=== PATIENT | male | born 1955 | race Caucasian/White ===

== ENCOUNTER 2022-12-18 16:40 | Inpatient (IN) | payer MEDICARE, OTHER ==
[~2022-12-18] VITALS: Ht 167.6 cm; Wt 66.7 kg
[2022-12-18] MEDS: HALOPERIDOL LACTATE 5 MG/ML INJ VIAL IM ONE ×2 (18:00→18:40)
[2022-12-18 18:42] LABS: Basophils # (auto) 0 10 ^3/uL (0-0.2); Basophils % (auto) 0.1 % (0.0-2.0); Eosinophils # (auto) 0.1 10 ^3/uL (0-0.8); Hematocrit 40.7 % (41.0-53.0); Hemoglobin 13.7 g/dL (13.5-17.5); Lymphocytes % (auto) 11.8 % (10.0-50.0); Mean Corpuscular Hemoglobin 30.4 pg (28.0-32.0); Mean Corpuscular Hgb Conc. 33.7 g/dL (32.0-36.0); Mean Corpuscular Volume 90.2 fL (80.0-100.0); Monocytes # (auto) 0.3 10 ^3/uL (0-1.3); Monocytes % (auto) 3.6 % (0.0-12.0); Neutrophils # (auto) 7.1 10 ^3/uL (1.6-8.6); Neutrophils % (auto) 83.5 % (37.0-80.0); Nucleated Red Blood Cells % 0.1 %; Red Blood Cells 4.51 10^6/uL (4.5-5.90); Red Cell Distribution Width 13.5 % (11.8-14.3); White Blood Cell 8.5 10^3/uL (4.4-10.8)
[2022-12-18 18:54] LABS: Acetaminophen < 2.0 ug/mL (10-30); Anion Gap 11 (5-15); Blood Alcohol < 3.0 mg/dL (0-5); Blood Urea Nitrogen 20 mg/dL (7-18); Calcium 8.4 mg/dL (8.5-10.1); Carbon Dioxide 20 mmol/L (21-32); Chloride 112 mmol/L (98-107); Glucose 69 mg/dL (74-106); Potassium 3.7 mmol/L (3.5-5.1); Salicylate < 1.7 mg/dL (2.8-20.0); Sodium 143 mmol/L (136-145)
[2022-12-18 18:58] LABS: Alanine Aminotransferase 17 U/L (16-61); Alkaline Phosphatase 53 U/L (45-117); Aspartate Aminotransferase 17 U/L (15-37); Bilirubin, Total 0.8 mg/dL (0.2-1.0); GFR African American 95 mL/min; GFR Non-African American 79 mL/min
[2022-12-18 18:59] LABS: INR 1.29 (0.9-1.15); Partial Thromboplastin Time 32.5 SEC (24.5-34.5)
[2022-12-18] MEDS: OLANZapine 5 MG TAB PO SCH (21:48)
[2022-12-19] MEDS: OLANZapine 5 MG TAB PO SCH ×2 (10:00→22:00)
[2022-12-19 10:53] LABS: Urine WBC None Seen /hpf (0 - 3)
[2022-12-19 11:39] LABS: Urine Bacteria NONE SEEN /hpf (None Seen); Urine Blood Negative /uL (Negative); Urine Specific Gravity 1.004 (1.001-1.035)
[2022-12-19 12:14] LABS: Alcohol, Urine < 3.0 mg/dL (0-10); Amphetamine Screen, Urine NEGATIVE (NEGATIVE); Barbiturate Scree,Urine NEGATIVE (NEGATIVE); Benzodiazephine Screen, Urine NEGATIVE (NEGATIVE); Cannabinoid Screen, Urine NEGATIVE (NEGATIVE); Cocaine Screen, Urine NEGATIVE (NEGATIVE); Opiate Scree,Urine NEGATIVE (NEGATIVE); Phencyclidine Screen, Urine NEGATIVE (NEGATIVE)
[2022-12-20] MEDS ORDERED: diphenhdrAMINE HCL 50 MG/1 ML VL ONE (00:41)
[2022-12-20] MEDS ORDERED: LORazepam 2MG/ML-1ML VIAL ONE (00:41)
[2022-12-20] MEDS: OLANZapine 5 MG TAB PO SCH ×3 (00:48→22:48)
[2022-12-20] MEDS ORDERED: diphenhdrAMINE HCL 50 MG/1 ML VL IM ONE (01:00)
[2022-12-20] MEDS ORDERED: LORazepam 2MG/ML-1ML VIAL IM ONE (01:00)
[2022-12-20] MEDS ORDERED: NOREPINEPHRINE 8 MG/250ML KIT 250 ML IV SCH (02:15)
[2022-12-21] MEDS: OLANZapine 5 MG TAB PO SCH ×2 (10:00→22:00)
[2022-12-22] MEDS: OLANZapine 5 MG TAB PO SCH ×2 (10:20→22:00)
[2022-12-23] MEDS: OLANZapine 5 MG TAB PO SCH (10:41)
[2022-12-24] MEDS: OLANZapine 5 MG TAB PO SCH ×3 (00:28→22:21)
[2022-12-24] MEDS ORDERED: cloNIDine HCL 0.1 MG TAB PO ONE (10:30)
[2022-12-25] MEDS: OLANZapine 5 MG TAB PO SCH ×2 (10:00→23:23)
[2022-12-25] MEDS ORDERED: OLANZapine 5 MG TAB PO ONE (13:45)
[2022-12-25] MEDS ORDERED: OLANZapine 5 MG TAB ONE (23:23)
[2022-12-26] MEDS: OLANZapine 5 MG TAB PO SCH ×2 (10:08→23:27)
[2022-12-27] MEDS: OLANZapine 5 MG TAB PO SCH ×2 (10:29→21:07)
[2022-12-27] MEDS ORDERED: cloNIDine 0.2 mg/24hr 7DAY PATCH TD ONE (20:15)
[2022-12-27] MEDS ORDERED: cloNIDine HCL 0.1 MG TAB PO ONE (20:20)
[2022-12-28] MEDS: OLANZapine 5 MG TAB PO SCH ×2 (10:16→21:26)
[2022-12-29] MEDS ORDERED: LORazepam 2MG/ML-1ML VIAL IM ONE (00:30)
[2022-12-29] MEDS ORDERED: diphenhdrAMINE HCL 50 MG/1 ML VL IM ONE (00:30)
[2022-12-29] MEDS: OLANZapine 5 MG TAB PO SCH ×2 (09:39→22:37)
[2022-12-29] MEDS ORDERED: DEXTROSE (50%) 50ML SYRG IV PRN (13:15)
[2022-12-29] MEDS ORDERED: hydrALAZINE HCL 20 MG/ML VL IV PRN (13:15)
[2022-12-29 16:03] VITALS: BP 145/81
[2022-12-29 16:27] VITALS: BP 145/81
[2022-12-29] MEDS: InsuLIN REG 1unit/0.01ml Soln (100units/ml) SC SCH ×2 (17:00→21:30)
[2022-12-29] MEDS ORDERED: PALI1TAB PO (17:52)
[2022-12-29] MEDS ORDERED: ASPI81TA28 PO (17:52)
[2022-12-29] MEDS ORDERED: DONE5TAB80 PO (17:52)
[2022-12-29] MEDS ORDERED: ATO40T PO (17:52)
[2022-12-29] MEDS ORDERED: NIFE1TAB30 PO (17:52)
[2022-12-29] MEDS ORDERED: HYDR12.59 PO (17:52)
[2022-12-29] MEDS: ACCU-CHEK COMFORT CURVE STRIP VI SCH ×2 (18:07→21:30)
[2022-12-29] MEDS ORDERED: HALOPERIDOL LACTATE 5 MG/ML INJ VIAL IM PRN (23:15)
[2022-12-30] MEDS: ACCU-CHEK COMFORT CURVE STRIP VI SCH ×3 (06:10→17:00)
[2022-12-30] MEDS: InsuLIN REG 1unit/0.01ml Soln (100units/ml) SC SCH ×3 (06:10→17:00)
[2022-12-30 08:00] VITALS: BP 150/79
[2022-12-30 08:59] LABS: Basophils # (auto) 0 10 ^3/uL (0-0.2); Basophils % (auto) 0.8 % (0.0-2.0); Eosinophils # (auto) 0.2 10 ^3/uL (0-0.8); Eosinophils % (auto) 3.3 % (0.0-7.0); Hematocrit 39.9 % (41.0-53.0); Hemoglobin 13.4 g/dL (13.5-17.5); Lymphocytes # (auto) 1.8 10 ^3/uL (0.4-5.4); Lymphocytes % (auto) 31.6 % (10.0-50.0); Mean Corpuscular Hemoglobin 30.5 pg (28.0-32.0); Mean Corpuscular Hgb Conc. 33.5 g/dL (32.0-36.0); Mean Corpuscular Volume 90.9 fL (80.0-100.0); Monocytes # (auto) 0.6 10 ^3/uL (0-1.3); Monocytes % (auto) 10.3 % (0.0-12.0); Nucleated Red Blood Cells % 0.1 %; Red Blood Cells 4.39 10^6/uL (4.5-5.90); Red Cell Distribution Width 13.2 % (11.8-14.3); White Blood Cell 5.6 10^3/uL (4.4-10.8)
[2022-12-30 09:23] LABS: Albumin 3.5 g/dL (3.4-5.0); BUN/Creatinine Ratio 18.9 (10.0-20.0); Potassium 3.7 mmol/L (3.5-5.1)
[2022-12-30 09:29] LABS: Bilirubin, Total 0.5 mg/dL (0.2-1.0); Calcium 8.4 mg/dL (8.5-10.1); Total Protein 6.7 g/dL (6.4-8.2)
[2022-12-30] MEDS: OLANZapine 5 MG TAB PO SCH (09:32)
[2022-12-30] MEDS ORDERED: QUEtiapine FUMARATE 25 MG TAB PO SCH (10:00)
[2022-12-30] MEDS ORDERED: NIFEdipine ER 30 MG TAB PO ONE (15:00)
[2022-12-30 16:24] VITALS: BP 168/99
[2022-12-30] MEDS ORDERED: DONEPEZIL HYDROCHLORIDE 5 MG TAB PO SCH (22:00)
[2022-12-31] MEDS ORDERED: NIFEdipine ER 30 MG TAB PO SCH (10:00)
[2022-12-31] MEDS ORDERED: HCTZ 25 MG TAB PO SCH (10:00)
== END 2022-12-30 18:17 | disposition left against medical advice (07) | DRG 885 ==
LOC: EDBD 16:40 → ER 16:40 → WEST WING 17:00 → ER 12-29 12:58 → WEST WING 12-29 15:11
PROVIDERS: ADMIT Nurse Practitioner Family; ATTEND Internal Medicine
DX: F20.9 Schizophrenia, unspecified (principal); E11.9 Type 2 diabetes mellitus without complications; E78.5 Hyperlipidemia, unspecified; Z53.29 Procedure and treatment not carried out because of patient's decision for other reasons; I10 Essential (primary) hypertension; Z79.899 Other long term (current) drug therapy; Z79.01 Long term (current) use of anticoagulants; Z91.199 Patient's noncompliance with other medical treatment and regimen due to unspecified reason
CPT/HCPCS: 36415; 80053; 80307; 80320; 80329; 81001; 82962; 83036; 84443; 85025; 85610; 85730; 93005; 97163; G0378

== ENCOUNTER → 2022-12-30 | Emergency (ER) | payer MEDICARE ==
[~2022-12-30] MED LIST: ASPI81TA28 PO; ATO40T PO; DONE5TAB80 PO; HYDR12.59 PO; NIFE1TAB30 PO; PALI1TAB PO
== END | disposition left against medical advice (07) ==
LOC: ER 18:56
DX: R41.82 Altered mental status, unspecified (principal); Z53.21 Procedure and treatment not carried out due to patient leaving prior to being seen by health care provider